=== PATIENT | female | born 1975 | race Caucasian/White ===

== ENCOUNTER 2018-02-03 14:56 | Observation (INO) | payer MEDICAID ==
[~2018-02-03] VITALS: Ht 162.6 cm; Wt 72.0 kg
[2018-02-03 15:56] LABS: BASOPHILS # (AUTO) 0.03 x10^3/uL (0-0.1); BASOPHILS % (AUTO) 0 % (0-1); EOSINOPHILS # (AUTO) 0.06 x10^3/uL (0-0.4); EOSINOPHILS % (AUTO) 1 % (1-7); LYMPHOCYTES # (AUTO) 1.68 x10^3/uL (1-3.4); LYMPHOCYTES % (AUTO) 14 % (22-44); MD NO; MEAN CORPUSCULAR HEMOGLOBIN 29.4 pg (27.0-34.8); MEAN CORPUSCULAR HGB CONC 33.7 g/dL (32.4-35.8); MEAN CORPUSCULAR VOLUME 87.3 fL (80-100); MEAN PLATELET VOLUME 8.3 fL (7.4-10.4); MONOCYTES # (AUTO) 0.66 x10^3/uL (0.2-0.8); MONOCYTES % (AUTO) 6 % (2-9); NEUTROPHILS # (AUTO) 9.28 x10^3/uL (1.8-6.8); NEUTROPHILS % (AUTO) 79 % (42-75); PLATELET COUNT 346 x10^3/uL (130-400); RED CELL DISTRIBUTION WIDTH 13.2 % (9.6-15.2)
[2018-02-03 16:04] LABS: ALBUMIN 3.7 g/dL (3.4-5.0); ANION GAP 6 mmol/L (5-15); CALCIUM 8.6 mg/dL (8.5-10.1); CHLORIDE 106 mmol/L (98-107)
[2018-02-03 16:05] LABS: SALICYLATE LEVEL < 1.7 mg/dL (2.8-20.0)
[2018-02-03 16:06] LABS: ALANINE AMINOTRANSFERASE 21 U/L (12-78); ALKALINE PHOSPHATASE 77 U/L (45-117); BILIRUBIN,TOTAL 0.9 mg/dL (0.2-1.0); CREATININE 0.63 mg/dL (0.55-1.02)
[2018-02-03 16:07] LABS: ACETAMINOPHEN < 2 mcg/mL (10-30)
[2018-02-03 16:21] LABS: AMPHETAMINE SCREEN, URINE Negative (Negative); BARBITURATE SCREEN, URINE Negative (Negative); BENZODIAZEPINE SCREEN, URINE Negative (Negative); CANNABINOID SCREEN, URINE Negative (Negative); COCAINE SCREEN, URINE Negative (Negative); METHADONE SCREEN, URINE Negative (Negative); OPIATE SCREEN, URINE Negative (Negative)
[2018-02-03] MEDS ORDERED: LORazepam 1MG TABLET ONE (16:44)
[2018-02-03] MEDS ORDERED: LORazepam 1MG TABLET PO ONE (17:00)
[2018-02-03] MEDS ORDERED: LORA10TA72 PO (17:19)
[2018-02-03] MEDS ORDERED: FEXO180T15 PO (17:20)
[2018-02-04] MEDS ORDERED: POTASSIUM CHLORIDE 20 MEQ TAB.ER.PRT PO ONE
[2018-02-04] MEDS ORDERED: LORazepam 1MG TABLET PO PRN
[2018-02-04] MEDS ORDERED: ACETAMINOPHEN 325 MG TABLET PO PRN
[2018-02-04] MEDS ORDERED: ONDANSETRON ODT 4 MG PO PRN
[2018-02-04 00:17] VITALS: BP 123/85
[2018-02-04 08:00] VITALS: BP 123/84
[2018-02-04] MEDS ORDERED: IBUPROFEN 600 MG TABLET PO PRN (09:00)
== END 2018-02-04 14:21 ==
LOC: ED 17:15 → INTOOBSV 23:25 → EDIP 23:25 → 2N 02-04 00:16
PROVIDERS: ADMIT Hospitalist; ATTEND Hospitalist
DX: R45.851 Suicidal ideations (principal); D72.829 Elevated white blood cell count, unspecified; E87.6 Hypokalemia; I11.9 Hypertensive heart disease without heart failure; M06.9 Rheumatoid arthritis, unspecified; Z82.49 Family history of ischemic heart disease and other diseases of the circulatory system; F12.90 Cannabis use, unspecified, uncomplicated; Z83.3 Family history of diabetes mellitus
CPT/HCPCS: 36415; 80053; 80307; 80329; 85025; 99285; G0378; G0480

== ENCOUNTER 2018-02-14 19:18 | Emergency (ER) | payer MEDICAID ==
[~2018-02-14] VITALS: Ht 162.6 cm; Wt 75.0 kg
[~2018-02-14 19:18] MED LIST: FEXO180T15 PO; LORA10TA72 PO
[2018-02-14 20:29] LABS: BASOPHILS # (AUTO) 0.04 x10^3/uL (0-0.1); BASOPHILS % (AUTO) 0 % (0-1); EOSINOPHILS # (AUTO) 0.07 x10^3/uL (0-0.4); EOSINOPHILS % (AUTO) 1 % (1-7); LYMPHOCYTES % (AUTO) 14 % (22-44); MD NO; MEAN CORPUSCULAR HEMOGLOBIN 29.5 pg (27.0-34.8); MEAN CORPUSCULAR HGB CONC 33.7 g/dL (32.4-35.8); MEAN CORPUSCULAR VOLUME 87.6 fL (80-100); MEAN PLATELET VOLUME 8.5 fL (7.4-10.4); MONOCYTES # (AUTO) 0.77 x10^3/uL (0.2-0.8); MONOCYTES % (AUTO) 6 % (2-9); NEUTROPHILS # (AUTO) 11.04 x10^3/uL (1.8-6.8); NEUTROPHILS % (AUTO) 80 % (42-75); PLATELET COUNT 350 x10^3/uL (130-400); RED BLOOD COUNT 5.52 x10^6/uL (3.82-5.3)
[2018-02-14 20:33] LABS: ALANINE AMINOTRANSFERASE 20 U/L (12-78); ALBUMIN 3.9 g/dL (3.4-5.0); ANION GAP 9 mmol/L (5-15); CALCIUM 9.2 mg/dL (8.5-10.1); CHLORIDE 108 mmol/L (98-107); CREATININE 0.82 mg/dL (0.55-1.02)
[2018-02-14 20:34] LABS: SALICYLATE LEVEL < 1.7 mg/dL (2.8-20.0)
[2018-02-14 20:35] LABS: ALKALINE PHOSPHATASE 78 U/L (45-117); TOTAL PROTEIN 8.3 g/dL (6.4-8.2)
[2018-02-14 20:36] LABS: ACETAMINOPHEN < 2 mcg/mL (10-30)
[2018-02-14 20:43] LABS: AMPHETAMINE SCREEN, URINE Negative (Negative); BARBITURATE SCREEN, URINE Negative (Negative); BENZODIAZEPINE SCREEN, URINE Negative (Negative); CANNABINOID SCREEN, URINE Negative (Negative); COCAINE SCREEN, URINE Negative (Negative); METHADONE SCREEN, URINE Negative (Negative); OPIATE SCREEN, URINE Negative (Negative)
[2018-02-14 21:39] LABS: CULTURE INDICATED? YES; MICROSCOPIC INDICATED
[2018-02-14 22:06] LABS: HCG UR SG 1.021 (1.003-1.030)
[2018-02-14 22:54] LABS: T4 (THYROXINE) 10.5 mcg/dL (4.8-13.9)
[2018-02-14 23:03] LABS: THYROID STIMULATING HORMONE 1.09 mIU/L (0.358-3.740)
[2018-02-14 23:13] VITALS: BP 167/97
== END 2018-02-15 ==
LOC: ED 19:55
DX: R40.1 Stupor (principal); I10 Essential (primary) hypertension; Z91.14 Patient's other noncompliance with medication regimen
CPT/HCPCS: 36415; 70450; 80053; 80307; 80329; 81001; 81025; 84436; 84443; 85025; 87086; 93005; 99285; G0480

== ENCOUNTER → 2018-10-16 | Outpatient (CLI) | payer OTHER | END | disposition home or self-care (01) | LOC: CFH 13:00 | PROVIDERS: ATTEND Obstetrics & Gynecology Female Pelvic Medicine and Reconstructive Surgery | DX: R92.1 Mammographic calcification found on diagnostic imaging of breast (principal) | CPT/HCPCS: 77065; G0279 ==

== ENCOUNTER → 2018-10-22 | Outpatient (CLI) | payer OTHER | END | disposition home or self-care (01) | LOC: CFH 12:30 | PROVIDERS: ATTEND Obstetrics & Gynecology Female Pelvic Medicine and Reconstructive Surgery | DX: N60.11 Diffuse cystic mastopathy of right breast (principal) | CPT/HCPCS: 19081; 88305; 77065 ==